=== PATIENT | male | born 1970 | race Caucasian/White ===

== ENCOUNTER 2017-06-24 01:03 | Emergency (ER) | payer BC ==
[~2017-06-24] VITALS: Ht 177.8 cm; Wt 89.5 kg
[~2017-06-24 01:03] MED LIST: ACID RELUX MED; ASPIRIN325 MG PO; CRESTOR20 MG; DAILY VITAMIN1 EAC8 PO; FENOFIBRATE160 M1; FOLIC ACID1 MG; FOLIC ACID1 MG PO; LEUCOVORIN CALCI5 MG PO; LISINOPRIL10 MG; METHOTREXATE2.5 MG PO; ORENCIA125 MG/1 M; PREDNISONE; PREDNISONE2.5 MG; VITAMIN D400 UNIT PO; XARELTO20 MG PO
[2017-06-24 01:50] LABS: HEMATOCRIT 45.3 % (38.0-50.0); HEMOGLOBIN 15.1 G/DL (12.5-16.6); MCH 28.4 PG (29.0-34.0); MCHC 33.3 G/DL (30.0-36.0); MCV 85.2 FL (86-99); PLATELET COUNT 324 K/uL (156-360); RBC DIS.WIDTH-CV 13.9 % (11.8-14.6); RBC DIS.WIDTH-SD 43.3 % (39-53); RED BLOOD COUNT 5.32 M/uL (4.00-5.50); WHITE BLOOD COUNT 7.2 K/uL (4.1-10.2)
[2017-06-24 02:01] LABS: ALBUMIN 4.5 g/dL (3.2-4.8)
[2017-06-24 02:02] LABS: CHLORIDE 108 mEq/L (99-109); POTASSIUM 3.7 mEq/L (3.7-5.4); SODIUM 140 mEq/L (136-147)
[2017-06-24 02:04] LABS: GLUCOSE 141 mg/dL (70-99); TOTAL PROTEIN 6.6 g/dL (6.4-8.3)
[2017-06-24 02:06] LABS: TOTAL BILIRUBIN 0.4 mg/dL (0.0-1.0)
[2017-06-24 02:07] LABS: ALKALINE PHOSPHATASE 85 IU/L (3-129)
[2017-06-24 02:08] LABS: CREATININE 1.5 mg/dL (0.6-1.3); GFR ESTIMATE (CALCULATED) 53 mL/min/ (58.99-99999)
[2017-06-24 02:09] LABS: AST (GOT) 32 IU/L (2-34); UREA NITROGEN (BUN) 18 mg/dL (9-23)
[2017-06-24 02:10] LABS: ALT (GPT) 36 IU/L (3-49)
[2017-06-24 03:55] LABS: LIPASE 34 U/L (1.0-51.0)
[2017-06-24 04:25] LABS: APPEARANCE CLEAR ((CLEAR)); BILIRUBIN NEGATIVE; BLOOD NEGATIVE; COLOR YELLOW ((YELLOW)); GLUCOSE (STRIP) NEGATIVE; KETONES NEGATIVE; LEUKOCYTES NEGATIVE; NITRITE NEGATIVE; PROTEIN (STRIP) NEGATIVE; SPECIFIC GRAVITY 1.025 (1.000-1.030); UCUL ADDED? NO; UROBILINOGEN 0.2 MG/DL (0.2-1.0)
[2017-06-24] MEDS ORDERED: NORCO 5/3251 TABLET PO (05:37)
[2017-06-24] MEDS ORDERED: FLOMAX0.4 MG PO (05:37)
[2017-06-24 06:10] VITALS: BP 138/84
== END 2017-06-24 06:11 | disposition home or self-care (01) ==
LOC: EME 01:03
DX: N13.2 Hydronephrosis with renal and ureteral calculous obstruction (principal); R55 Syncope and collapse; R19.7 Diarrhea, unspecified; R11.2 Nausea with vomiting, unspecified; E86.0 Dehydration; M06.9 Rheumatoid arthritis, unspecified; E78.5 Hyperlipidemia, unspecified; Z79.82 Long term (current) use of aspirin; Z86.718 Personal history of other venous thrombosis and embolism
CPT/HCPCS: 74177; 80053; 81003; 83690; 85027; 99281; 99285; J1885; J2270; J7040

== ENCOUNTER 2017-08-09 13:53 | Emergency (ER) | payer BC ==
[~2017-08-09] VITALS: Ht 177.8 cm; Wt 82.1 kg
[~2017-08-09 13:53] MED LIST changes: +FLOMAX0.4 MG PO; +NORCO 5/3251 TABLET PO
[2017-08-09 15:00] LABS: HEMATOCRIT 48.7 % (38.0-50.0); HEMOGLOBIN 16.2 G/DL (12.5-16.6); MCH 28.7 PG (29.0-34.0); MCHC 33.3 G/DL (30.0-36.0); MCV 86.2 FL (86-99); PLATELET COUNT 229 K/uL (156-360); RBC DIS.WIDTH-SD 47.4 % (39-53); RED BLOOD COUNT 5.65 M/uL (4.00-5.50); WHITE BLOOD COUNT 6.8 K/uL (4.1-10.2)
[2017-08-09 15:09] LABS: CHLORIDE 106 mEq/L (99-109); POTASSIUM 4.2 mEq/L (3.7-5.4); SODIUM 138 mEq/L (136-147)
[2017-08-09 15:11] LABS: GLUCOSE 99 mg/dL (70-99)
[2017-08-09 15:15] LABS: GFR ESTIMATE (CALCULATED) > 59 mL/min/ (58.99-99999)
[2017-08-09 15:16] LABS: UREA NITROGEN (BUN) 10 mg/dL (9-23)
[2017-08-09 16:41] LABS: ALBUMIN 4.2 g/dL (3.2-4.8)
[2017-08-09 16:44] LABS: TOTAL PROTEIN 6.9 g/dL (6.4-8.3)
[2017-08-09 16:46] LABS: TOTAL BILIRUBIN 0.7 mg/dL (0.0-1.0)
[2017-08-09 16:47] LABS: ALKALINE PHOSPHATASE 109 IU/L (3-129)
[2017-08-09 16:49] LABS: AST (GOT) 24 IU/L (2-34); DIRECT BILIRUBIN 0.3 mg/dL (0.0-0.3)
[2017-08-09 16:50] LABS: ALT (GPT) 37 IU/L (3-49); LIPASE 25 U/L (1.0-51.0)
[2017-08-09 16:59] LABS: APPEARANCE SL.HAZY ((CLEAR)); BILIRUBIN NEGATIVE; BLOOD NEGATIVE; COLOR AMBER ((YELLOW)); GLUCOSE (STRIP) NEGATIVE; KETONES NEGATIVE; LEUKOCYTES NEGATIVE; NITRITE NEGATIVE; PROTEIN (STRIP) 100; SPECIFIC GRAVITY 1.031 (1.000-1.030); UROBILINOGEN 0.2 MG/DL (0.2-1.0)
[2017-08-09 17:24] LABS: BACTERIA NONE SEEN /HPF; CALCIUM OXALATE CRYSTALS 2+ /HPF; EPITHELIAL CELLS NONE SEEN /HPF; HYALINE CASTS 0-5 /LPF; MUCUS 3+ /LPF; RED BLOOD CELLS 0-5 /HPF (0-5); UCUL ADDED? NO; WHITE BLOOD CELLS 0-5 /HPF (0-5)
[2017-08-09 19:10] VITALS: BP 111/67
== END 2017-08-09 19:11 | disposition home or self-care (01) ==
LOC: EME 13:53
DX: R19.7 Diarrhea, unspecified (principal); E78.5 Hyperlipidemia, unspecified; M06.9 Rheumatoid arthritis, unspecified; Z86.718 Personal history of other venous thrombosis and embolism
CPT/HCPCS: 74177; 80048; 80076; 81003; 83690; 85027; 87177; 87493; 87506; 99281; 99285; J7030